=== PATIENT | male | born 1950 | race Caucasian/White ===

== ENCOUNTER 2016-04-11 06:38 | Outpatient (CLI) | payer MEDICAID ==
[~2016-04-11] VITALS: Ht 188 cm; Wt 72.7 kg
--- NOTE | ~2016-04-11 | HEMODYNAMI ---
PATIENT:JR BRIGHT MEDICAL RECORD: [id number] : 54 LOCATION:D.CAT ADMISSION DATE: 04/11/16 Generatedon:04/11/20169:36 Patient name: JR BRIGHT Patient #: [id number] : 1950 Date of study: 04/11/2016 Page: Of Hemodynamic Procedure Report Patient Data Patient Demographics Procedure consent was obtained First Name: JR Gender: Male Last Name: KAILA : 1950 Patient #: [id number] Age: 65 year(s) Race: Unknown SSN: [id number] Additional ID: [id number] Contact details [address]: [address] [place] [address] State: [place] City: [place] Zip code: [address] Past Medical History Allergies Allergen Reaction Date Comments Reported Other allergy 04/11/2016 codeine Admission Admission Data Admission Date: 04/11/2016 Admission Time: 6:38 Arrival Date: 04/11/2016 Arrival Time: 8:30 Admit Source: Other Insurance Payor: Private health insurance Height (in.): 74 BSA: 2.01 (m2) Height (cm.): 187.96 BMI: 21.31 (kg/m2) Weight (lbs.): 166 Weight (kg.): 75.3 Lab Results Lab Result Date: 04/11/2016 Lab Result Time: 0:00 Biochemistry Name Units Result Min Max BUN mg/dl 22 --(----)-* 7 18 Creatinine mg/dl 0.9 --(-*--)-- 0.6 1.3 CBC Name Units Result Min Max Hemoglobin g/dl 14.5 --(*---)-- 13.5 17.5 Procedure Procedure Types Cath Procedure Diagnostic Procedure [facility] w/Coronaries PCI Procedure Coronary Stent Initial Procedure Description Procedure Date Procedure Date: 04/11/2016 Procedure Start Time: 9:14 Procedure End Time: 9:31 Procedure Staff Name Function Ovi Anthony MD Performing Physician Miguel Thomas RT Scrub Kaela Meehan RN Nurse Jose Kemp RT Skidder Lever Operator Rohini Allen RT Monitor Procedure Data Cath Procedure Fluoroscopy Diagnostic fluoroscopy Total fluoroscopy Time: 6.9 time: 6.9 min min Diagnostic fluoroscopy Total fluoroscopy dose: 688 dose: 688 mGy mGy Contrast Material Contrast Material Type Amount (ml) Isovue 370 142 Entry Location Entry Primary Successful Side Size Upsize Upsize Entry Closure Barrientos ccessful Closure Location (Fr) 1 (Fr) 2 (Fr) Remarks Device Remarks Radial Right 6 Fr Mechanical artery Short Compression Estimated blood loss: 5 ml Diagnostic catheters Device Type Used For End Catheter Placement Terumo 5Fr Macho 110cm Multi-vessel catheter Angiography Cordis Infinity 5Fr AR 2 Right Coronary MOD catheter Angiography Procedure Complications No complications Procedure Medications Medication Administration Route Dosage Oxygen NC 2 l/min Heparin Flush Bag added to field 2 bags (1000units/500ml NS) Lidocaine 2% added to field 20 Radial Cocktail added to field 1 syringe (Verapomil 2mg/Nitro 400mcg/Heparin 1500units) Benadryl I.V. 50 mg Versed I.V. 1 mg Fentanyl I.V. 50 mcg Fentanyl I.V. 50 mcg Versed I.V. 1 mg Radial Cocktail I.A. 1 syringe (Verapomil 2mg/Nitro 400mcg/Heparin 1500units) Fentanyl I.V. 50 mcg Versed I.V. 1 mg Heparin Bolus I.V. 4000 units Hemodynamics Rest BSA: 2.01 (m2) HGB: 14.5 (g/dl) O2 Consumption: Estimated: 242.54 (ml/min) O2 Co nsumption indexed: Estimated:120.67 (ml/min/m) Heart Rate: 80 (bpm) Pressure Samples Time Site Value (mmHg) Purpose Heart Use Rate(bpm) 9:15 LV 80/-48,34 Snapshot 86 Snapshots Pre Cath Intra NCS Post Cath Vital Signs Time Heart Resp SPO2 NIBP (mmHg) Rhythm Pain Sedation Rate (ipm) (%) Status Level (bpm) 9:02:19 81 19 100 163/102(128) NSR 0 (11) 10(A) , No pain 9:06:37 70 17 99 166/100(123) NSR 0 (11) 10(A) , No pain 9:10:57 77 16 98 143/80(115) NSR 0 (11) 10(A) , No pain 9:15:13 89 16 98 130/56(89) NSR 0 (11) 9(A) , No pain 9:19:25 85 16 97 121/62(90) NSR 0 (11) 9(A) , No pain 9:23:37 88 16 96 120/62(95) NSR 0 (11) 9(A) , No pain 9:28:28 87 15 100 153/91(114) NSR 0 (11) 9(A) , No pain 9:30:29 91 16 100 160/95(127) NSR 0 (11) 9(A) , No pain Medications Time Medication Route Dose Verified Delivered Reason Notes Effectiveness by by 9:08:24 Oxygen NC 2 l/min Ovi Kaela Per physician Raj Meehan RN 9:08:46 Heparin Flush added 2 bags Ovi Dior used for Bag to Raj Anthony MD procedure (1000units/500ml field NS) 9:08:53 Lidocaine 2% added 20ml Ovi Dior used for to vial Raj Anthony MD procedure field 9:09:01 Radial Cocktail added 1 Ovi Ovi used for (Verapomil to syringe Raj Anthony MD procedure 2mg/Nitro field 400mcg/Heparin 1500units) 9:09:08 Benadryl I.V. 50 mg Ovi Kaela Per physician Raj Meehan RN 9:11:38 Fentanyl I.V. 50 mcg Ovi Kaela for sedation Raj Meehan RN 9:11:46 Versed I.V. 1 mg Ovi Kaela for sedation Raj Meehan RN 9:13:22 Fentanyl I.V. 50 mcg Ovi Kaela for sedation Raj Meehan RN 9:13:24 Versed I.V. 1 mg Ovi Kaela for sedation Raj Meehan RN 9:14:11 Radial Cocktail I.A. 1 Ovi Ovi for (Verapomil syringe Raj Anthony MD vasodilation 2mg/Nitro 400mcg/Heparin 1500units) 9:15:10 Versed I.V. 1 mg Ovi Kaela for sedation Raj Meehan RN 9:15:39 Fentanyl I.V. 50 mcg Ovi Sherwood for sedation Raj Meehan RN 9:19:38 Heparin Bolus I.V. 4000 Ovi Sherwood for units Raj Meehan RN anticoagulation Procedure Log Time Note 8:30:17 Jose Kemp RT(R) sent for patient. Start room use. 8:54:13 ACC Patient presents with Stable Angina CCS Anginal Class 2--Slight limitation of ordinary activity. 8:54:15 Diagnostic Cath status Elective 8:54:24 Time tracking: Regular hours 8:54:29 Plan of Care:Hemodynamics will remain stable., Cardiac rhythm will remain stable., Comfort level will be maintained., Respiratory function will remain adequate., Patient/ family verbilizes understanding of procedure., Procedure tolerated without complication., Recovers from procedure without complications.. 8:54:33 Patient received from Outpatients to CCL 1 Alert and oriented. Tansferred to table in Supine position. 8:54:34 Warm blankets applied, and samantha hugger turned on for patient comfort. 8:54:35 Correct patient and procedure confirmed by team. 8:54:36 Signed procedure consent form obtained from patient. 8:54:37 ECG and BP/O2 sat monitors applied to patient. 9:01:14 Vital chart was started 9:05:02 Baseline sample Acquired. 9:05:05 Rhythm: sinus rhythm 9:05:06 Full Disclosure recording started 9:05:29 H&P Date Dictated: 03/22/2016 Within 30 days and on chart., H&P Addendum completed by physician on day of procedure. (MUST COMPLETE FOR ALL OUTPATIENTS). 9:05:31 Pre-procedure instructions explained to patient. 9:05:31 Pre-op teaching completed and patient verbalized understanding. 9:05:32 Family in waiting room. 9:05:33 Patient NPO since Midnight. 9:05:43 Patient allergic to Other allergycodeine 9:05:46 Is the patient allergic to Iodine/contrast media? No. 9:05:47 Was the patient premedicated? No 9:05:48 Is patient on blood thinner?Yes 9:05:51 ACC The patient was administered the following blood thiners within the last 24 hours: ACCPlavix 9:05:53 Patient diabetic? No. 9:05:57 Previous problem with sedation/anesthesia? No ? 9:05:59 Snore? Yes 9:06:00 Sleep apnea? No 9:06:01 Deviated septum? No 9:06:02 Opens mouth fully? Yes 9:06:03 Sticks out tongue? Yes 9:06:05 Airway obstruction? No ? 9:06:07 Dentures? No ? 9:06:11 Pre procedure: right dorsailis pedis pulse 1+ Palpable, but thready & weak; easily obliterated 9:06:14 Modified David's test Radial < 7 seconds 9:06:16 Patient pain scale 0/10 ?. 9:06:26 IV patent on arrival in left forearm with 0.9% NaCl at [facility]. 9:08:24 Oxygen 2 l/min NC was given by Kaela Meehan RN; Per physician; 9:08:46 Heparin Flush Bag (1000units/500ml NS) 2 bags added to field was given by Ovi Anthony MD; used for procedure; 9:08:53 Lidocaine 2% 20ml vial added to field was given by Ovi Anthony MD; used for procedure; 9:09: Radial Cocktail (Verapomil 2mg/Nitro 400mcg/Heparin 1500units) 1 syringe added to field was given by Ovi Anthony MD; used for procedure; 9:09:08 Benadryl 50 mg I.V. was given by Kaela Meehan RN; Per physician; 9:11:25 Lab results completed and on chart. 9:11:29 Right Radial & Right Groin area was prepped with chlora-prep and draped in sterile fashion 9:11:30 Alarms reviewed by R. N. 9:11:30 Sharps counted by scrub and verified by R.N. 9:11:31 Physician arrived 9:11:31 --------ALL STOP TIME OUT------ 9:11:32 Final Timeout: patient, procedure, and site verified with staff and physician. All members of the team are in agreement. 9:11:34 Right Radial & Right Groin site verified by team. 9:11:38 Fentanyl 50 mcg I.V. was given by Kaela Meehan RN; for sedation; 9:11:42 Physical assessment completed. ASA score P 2 - A patient with mild systemic disease as per Ovi Anthony MD. 9:11:46 Versed 1 mg I.V. was given by Kaela Meehan RN; for sedation; 9:12:03 Sedation plan: IV Moderate Sedation Versed, Fentanyl 9:12:06 Use device set Radial Dx 9:12:08 Acist Syringe opened to sterile field. 9:12:08 Cardinal Cath Pack opened to sterile field. 9:12:08 Bag Decanter opened to sterile field. 9:12:09 Terumo 6Fr Slender Glidesheath opened to sterile field. 9:12:09 St Manolo 260cm J .035 wire opened to sterile field. 9:12:10 Acist Hand Control opened to sterile field. 9:12:10 Acist Manifold opened to sterile field. 9:12:12 Tegaderm 4 x 4 opened to sterile field. 9:12:19 Procedure started. 9:12:59 Zero performed for pressure channel P1 9:13:04 Zero performed for pressure channel P1 9:13:10 Zero performed for pressure channel P1 9:13:22 Fentanyl 50 mcg I.V. was given by Kaela Meehan RN; for sedation; 9:13:24 Versed 1 mg I.V. was given by Kaela Meehan RN; for sedation; 9:14:03 Local anesthetic to right radial artery with Lidocaine 2% by Ovi Anthony MD.INITIAL ACCESS ONLY 9:14:11 Radial Cocktail (Verapomil 2mg/Nitro 400mcg/Heparin 1500units) 1 syringe I.A. was given by Ovi Anthony MD; for vasodilation; 9:14:12 A 6 Fr Short sheath was inserted into the Right Radial artery 9:14:25 A Terumo 5Fr Macho 110cm catheter was advanced over the wire and used for Multi-vessel Angiography. 9:15:05 LV hemodynamics recorded. 9:15:07 LV gram done using MISTRY 9:15:10 Versed 1 mg I.V. was given by Kaela Meehan RN; for sedation; 9:15:10 Injector settings: Ml/sec: 5, Volume: 15, 9:15:16 EF : 60 % 9:15:35 Terumo TR Band Standard opened to sterile field. 9:15:39 Fentanyl 50 mcg I.V. was given by Kaela Meehan RN; for sedation; 9:16:26 Catheter removed. 9:16:40 Medtronic Launcher 6Fr EBU 3.5 guide catheter opened to sterile field. 9:17:05 6 Fr ebu 3.5 guide catheter was inserted over the wire 9:17:12 LCA angiography performed. 9:17:15 Injector settings: Ml/sec: 3, Volume: 6, 9:18:15 Moov cc. BasixCompak Inflation Kit opened to sterile field. 9:18:16 Concepcion Whisper J 300cm 0.014 guide wire opened to sterile field. 9:18:59 whisper wire advanced. 9:19:00 Wire advanced across lesion. 9:19:38 Heparin Bolus 4000 units I.V. was given by Kaela Meehan RN; for anticoagulation; 9:22:40 Inflation Number: 1 A Medtronic Resolute 3.0 X 30 stent was prepped and advanced across the Prox LAD. The stent was deployed at 13 JOELLE for 0:10 (min:sec). 9:23:39 Stent catheter was removed intact over wire. 9:25:19 Inflation Number: 2 A Medtronic Resolute 3.0 X 9 stent was prepped and advanced across the Prox LAD. The stent was deployed at 13 JOELLE for 0:10 (min:sec). 9:25:49 Stent catheter was removed intact over wire. 9:25:58 Wire removed. 9:25:59 Guide catheter removed. 9:26:05 A Cordis Infinity 5Fr AR 2 MOD catheter was advanced over the wire and used for Right Coronary Angiography. 9:27:48 RCA angiography performed. 9:27:51 Injector settings: Ml/sec: 3, Volume: 6, 9:28:56 Catheter removed. 9:29:22 Sheath removed intact; hemostasis achieved with Mechanical Compression to the Right Radial artery. 9:29:26 Procedure ended.(Physican Out) 9::48 Fluoroscopy time 06.90 minutes. 9:29:55 Flurop Dose total: 688 9:29:55 Fluoroscopy dose: 688 mGy 9:30:00 Contrast amount:Isovue 370 142ml. 9:30:02 Sharps counted by scrub and verified by R.N. 9:30:05 Insertion/operative site no bleeding no hematoma. 9:30:12 Post-op/insertion site Right Radial artery dressed using a 4 x 4 and Tegaderm. 9:30:25 Post right radial artery:stable 9:30:27 Post Procedure Pulses reassessed and unchanged 9:30:29 Post procedure rhythm: unchanged. 9:30:32 Estimated blood loss: 5 ml 9:30:33 Post procedure instruction explained to patient.Patient verbalizes understanding. 9:30:34 Patient needs reinforcement of post procedure teaching. 9:31:01 Procedure type changed to Cath procedure, Diagnostic procedure, LHC, LHC w/Coronaries, PCI procedure, Coronary Stent Initial 9:31:02 Procedure and supply charges have been captured, reviewed, submitted and are correct. 9:31:06 Procedure Complication : No complications 9:31:08 Vital chart was stopped 9:31:09 See physician's report for complete and final results. 9:31:11 Report given to Post Procedure Room. 9:31:16 Patient transfered to Post Procedure Room with Stretcher. 9:31:17 Procedure ended. 9:31:17 Full Disclosure recording stopped 9:31:27 ACC-PCI Only Patient was given prescriptions, or instructed by Ovi Anthony MD to start/continue the following medications upon discharge: Plavix 9:31:28 End room use (Document Last) 9:34:28 Admit Source: Other 9:34:34 Arrival Date: 04/11/2016 8:30:00 AM 9:34:41 Insurance Payor : Private health insurance 9:34:46 Patient Height : 187.96 cm 9:34:51 Patient Weight : 75.3 kg 9:35:17 Lab Result : Hemoglobin 14.5 g/dl 9:35:17 Lab Result : Creatinine 0.9 mg/dl 9:35:17 Lab Result : BUN 22 mg/dl Intervention Summary Intervention Notes Time ActionType Lesion and Equipment Action# Pressure Duration Attributes Used 9:22:40 Place stent Prox LAD Medtronic 1 13 00:10 Resolute 3.0 X 30 stent 9:25:19 Place stent Prox LAD Medtronic 2 13 00:10 Resolute 3.0 X 9 stent Device Usage Item Name Manufacture Quantity Catalog Hospital Part Current Minimal Lot# / Number Charge Number Stock Stock Serial# Code Acist Acist 1 89367 070113 126023 255829 20 AccuSilicon [facility] Cardinal Cardinal 1 [id number] 763420 71455 435208 5 Cath Pack Health Bag Microtek 1 2002S 474996 21759 098345 5 [employer] Terumo 6Fr Terumo 1 [id number] 803374 807865 778854 [address] St Manolo 1 590659 323490 077951 999134 30 260cm J .035 wire Acist Hand Acist 1 89216 733618 075127 245414 5 Control [employer] Inc Acist Acist 1 44768 755713 338011 982444 5 Funtactix Medical [employer] Inc Tegaderm 4 3M 1 [id number] 275096 050893 577826 5 x 4 Terumo 5Fr Terumo 1 40-7543 923825 805840 470048 5 Macho 110cm catheter Terumo TR Terumo 1 [id number] 430784 422780 612887 40 Band Standard Medtronic Medtronic 1 [id number] 943108 03733 598833 3 Launcher 6Fr EBU 3.[address] [facility] 1 [id number] 632222 794238 768398 15 BasixCompak Medical Inflation Kit Concepcion Concepcion 1 [id number] 441721 234290 751764 5 Whisper J Vascular 300cm 0.014 guide wire Medtronic Medtronic 1 [id number] 457866 159285 5 [id number] Resolute 3.0 X 30 stent Medtronic Medtronic 1 [id number] 545711 903497 9 [id number] Resolute 3.0 X 9 stent Cordis Cardinal 1 [id number] 544839 769187 040559 20 [employer] 5Fr AR 2 MOD catheter Signature Audit [place] Stage Time Signature Unsigned Intra-Procedure 04/11/2016 Rohini Allen 9:36:16 AM RT(R) Signatures Monitor : Rohini Allen RT Signature : Date : Time : [facility] [address] [place] [address]
[2016-04-11] MEDS ORDERED: PRINIVIL10 MG PO (07:46)
[2016-04-11] MEDS ORDERED: PLAVIX75 MG PO (07:47)
[2016-04-11 07:51] LABS: CALC OSMOLALITY 281 mosm/kg (275-300); CALCIUM 9.1 mg/dL (8.5-10.1); CARBON DIOXIDE 27.7 mmol/L (21.0-32.0); CHLORIDE - SERUM 106 mmol/L (98-107); CREATININE - SERUM 0.9 mg/dL (0.6-1.3); GLUCOSE 97 mg/dL (74-106); POTASSIUM - SERUM 4.4 mmol/L (3.5-5.1); SODIUM 140 mmol/L (136-145); UREA NITROGEN 22 mg/dL (7-18); eGFR NON AFRICAN AMERICAN > 90 mL/min (90-120)
[2016-04-11 07:52] LABS: HEMATOCRIT 40.6 % (42.0-54.0); HEMOGLOBIN 14.5 g/dL (13.5-17.5); LYMPHOCYTES 33.6 % (15-50); MCH 32.7 pg (26.0-34.0); MCHC 35.7 g/dL (31.0-37.0); MCV 91.4 fL (80.0-100.0); MEAN PLATELET VOLUME 9.3 fL (7.4-10.4); NEUTROPHILS 56.2 % (40-80); PLATELET COUNT 211 10x3/uL (130-400); RBC 4.44 10x6/uL (4.20-6.10); WBC 5.4 10x3/uL (4.8-10.8)
[2016-04-11 08:03] VITALS: BP 147/90; Ht 188 cm; Wt 72.7 kg
[2016-04-11] MEDS ORDERED: BAYER CHEWABLE81 MG PO (09:51)
--- NOTE | 2016-04-11 09:58 | NUR ---
1000-RIGHT WRIST TR BAND CDI, NO BLEEDING OR HEMATOMA NOTED, CONT TO MONITOR SITE
--- NOTE | 2016-04-11 11:24 | NUR ---
1030-PT RESTING COMFORTABLY, NO DISTRESS, RIGHT WRIST TR BAND CDI, NO BLEEDING OR HEMATOMA NOTED, CONT TO MONITOR SITE, NSR, VSS, NO FAMILY PRESENT PROVIDE COMFORT AND SAFETY, CALL LIGHT IN REACH, ENCOURAGED TO CALL FOR NEEDS.
--- NOTE | 2016-04-11 11:25 | NUR ---
1100-NO CHANGES IN ASSESSMENT, CONT POC
--- NOTE | 2016-04-11 11:27 | NUR ---
1130-PT ALERT AND ORIENTED, DR. QUINONES AT BEDSIDE, PT TO RETURN NEXT SATURDAY FOR STENT TO [facility], STAY OVERNIGHT AND HAVE STENT TO [facility]C ON SATURDAY. OFFICE NOTIFIED AND WILL SET UP. RIGHT WRIST TR BAND REMAINS CDI, NO BLEEDING OR HEMATOMA NOTED, CONT TO MONITOR SITE, NO FAMILY PRESENT, CONT POC, ENCOURAGED TO CALL FOR NEEDS. PO FLUIDS AT BEDSIDE.
--- NOTE | 2016-04-11 12:05 | NUR ---
1200-NO CHANGES IN ASSESSMENT, CONT POC, INFORMATION RECEIEVED FROM DR. QUINONES'S OFFICE FOR FOLLOW UP STENT PLACEMENT ON SATURDAY/SATURDAY.
--- NOTE | 2016-04-11 12:25 | NUR ---
1230-PT ALERT AND ORIENTED, NO DISTRESS, RIGHT WRIST CDI, SLOWLY RELEASE 1/2 OF AIR FROM BAND, NO BLEEDING OR HEMATOMA NOTED, CONT TO MONITOR SITE, NO FAMILY PRESENT AT THIS TIME, PT VERBALIZES NO NEEDS, CONT POC.
--- NOTE | 2016-04-11 13:35 | NUR ---
1300-NO CHANGES IN ASSESSMENT, CONT POC 1315-RIGHT WRIST TR BAND CDI, REMAINDER OF AIR RELEASED, NO BLEEDING OR HEMATOMA NOTED, CONT TO MONITOR SITE, NSR, VSS, IV DC, CATH INTACT, PT UP TO GET DRESSED, ENCOURAGED TO CALL FOR NEEDS. FAMILY AT BEDSIDE TO ASSIST. 1330-DRESSING TO RIGHT WRIST CDI, NO BLEEDING OR HEMATOMA NOTED, PT AMBULATORY TO BATHROOM, ABLE TO VOID WITHOUT DIFFICULTY, DC INSTRUCTIONS REVIEWED WITH PT/FAMILY, VERBALIZES UNDERSTANDING, EDUCATION PROVIDED ON SAFETY FALL RISKS, PREARRIVAL INSTRUCTIONS GIVEN FOR RETURN VISIT, PT READY FOR DC, CALL FOR WC 1335-PT TO POV VIA WC
--- NOTE | 2016-04-20 16:40 | OP ---
PATIENT NAME: JR BRIGHT MEDICAL RECORD: [id number] :54 LOCATION:D.CAT ADMISSION DATE: SURGEON: YUNIEL QUINONES MD DATE OF OPERATION: 04/11/2016 PROCEDURES: 1. PTCA, stent LAD. 2. Left heart catheterization. 3. Selective coronary angiography. 4. Left ventriculogram. INDICATION: Angina and coronary artery disease. PROCEDURE IN DETAIL: After informed consent was obtained and after a detailed explanation of risks, benefits, as well as alternative therapies, the patient elected to proceed with angiogram and angioplasty. The right radial area was prepped and draped in normal sterile fashion. The right radial artery was cannulated via modified Seldinger technique with placement of 6-Austrian sheath. All catheters exchanged through this sheath. FINDINGS: Left ventriculogram was performed in standard 30-degree MISTRY view, reveals good cardiac wall motion throughout all segments. Overall ejection fraction estimated at 55% to 60%. SELECTIVE CORONARY ANGIOGRAPHY: 1. Left main showed no significant angiographic disease. 2. Left anterior descending has 80% stenosis proximally. 3. The left circumflex has 50% to 70% stenosis in the mid vessel, but this does not appear to be critical. 4. The right coronary has 2 areas of 70% to 80% stenosis in the mid vessel. PTCA STENT OF THE LAD: The stent used was a 3.0 x 30 and 3.0 x 9 both Medtronic Resolute stents. Result was 0% residual stenosis. OVERALL IMPRESSION: Successful percutaneous transluminal coronary angioplasty stent of the left anterior descending going from 80% initial stenosis to 0% residual. PLAN: PTCA stent of the RCA in the near future. TRANSINT:[id number] Voice Confirmation ID: [id number] DOCUMENT ID: [id number] YUNIEL QUINONES MD at 1640 CC: [id number] DICTATION DATE: 04/16/16 1142 DENTAL LABORATORY MANAGER: 04/16/16 1150 [facility] CLI 04/11/16 [place] [id number]
== END 2016-04-11 13:38 | disposition home or self-care (01) ==
LOC: D.CATH 06:38
PROVIDERS: Internal Medicine Interventional Cardiology
DX: I20.9 Angina pectoris, unspecified (principal); I10 Essential (primary) hypertension; R94.39 Abnormal result of other cardiovascular function study; Z87.891 Personal history of nicotine dependence

== ENCOUNTER 2016-04-17 07:37 | Outpatient (CLI) | payer OTHER ==
[~2016-04-17] VITALS: Ht 188 cm; Wt 73.2 kg
--- NOTE | ~2016-04-17 | HEMODYNAMI ---
PATIENT:JR BRIGHT MEDICAL RECORD: [id number] : 54 LOC[id number] [id number] ADMISSION DATE: 04/17/16 Generatedon:04/18/201610:58 Patient name: JR BRIGHT Patient #: [id number] : 1950 Date of study: 04/18/2016 Page: Of Hemodynamic Procedure Report Patient Data Patient Demographics Procedure consent was obtained First Name: JR Gender: Male Last Name: KAILA : 1950 [facility] Initial: ESTRELLITA Age: 65 year(s) Patient #: [id number] Race: Unknown SSN: [id number] Additional ID: [id number] Contact details Address: [address] [place] [address] State: [place] City: [place] Zip code: [address] Past Medical History Allergies Allergen Reaction Date Comments Reported Other allergy 04/11/2016 codeine Other allergy 04/17/2016 codeine Codeine 04/18/2016 Admission Admission Data Admission Date: 04/17/2016 Admission Time: 7:37 Arrival Date: 04/17/2016 Arrival Time: 9:30 Admit Source: Other Insurance Payor: Private Room #: [id number] health insurance Height (in.): 74 BSA: 1.98 (m2) Height (cm.): 187.96 BMI: 20.54 (kg/m2) Weight (lbs.): 160 Weight (kg.): 72.57 Lab Results Lab Result Date: 04/18/2016 Lab Result Time: 0:00 Biochemistry Name Units Result Min Max BUN mg/dl 17 --(---*)-- 7 18 Creatinine mg/dl 0.9 --(-*--)-- 0.6 1.3 CBC Name Units Result Min Max Hemoglobin g/dl 14.7 --(-*--)-- 13.5 17.5 Procedure Procedure Types Cath Procedure Diagnostic Procedure FFR/IVUS Intra-Coronary IVUS Initial PCI Procedure Coronary Stent Initial Procedure Description Procedure Date Procedure Date: 04/18/2016 Procedure Start Time: 10:47 Procedure End Time: 10:55 Procedure Staff Name Function Ovi Anthony MD Performing Physician Rohini Allen RT Scrub Kaela Meehan RN Nurse Miguel Thomas RT Exterior Designer Echo Redmond RT Monitor Procedure Data Cath Procedure Fluoroscopy Diagnostic fluoroscopy Total fluoroscopy Time: 2.8 time: 2.8 min min Diagnostic fluoroscopy Total fluoroscopy dose: 299 dose: 299 mGy mGy Contrast Material Contrast Material Type Amount (ml) Isovue 300 44 Entry Location Entry Primary Successful Side Size Upsize Upsize Entry Closure Succes sful Closure Location (Fr) 1 (Fr) 2 (Fr) Remarks Device Remarks Femoral Left 6 Fr Vascade artery Short Closure System Estimated blood loss: 10 ml Procedure Complications No complications Procedure Medications Medication Administration Route Dosage Oxygen NC 2 l/min Heparin Flush Bag added to field 2 bags (1000units/500ml NS) Lidocaine 2% added to field 20 Versed I.V. 1 mg Fentanyl I.V. 50 mcg Versed I.V. 1 mg Fentanyl I.V. 50 mcg Heparin Bolus I.V. 4000 units Versed I.V. 1 mg Fentanyl I.V. 50 mcg Versed I.V. 1 mg Fentanyl I.V. 50 mcg Hemodynamics Rest BSA: 1.98 (m2) O2 Consumption: Estimated: 237.24 (ml/min) O2 Consumption indexed : Estimated:119.82 (ml/min/m) Heart Rate: 78 (bpm) Snapshots Pre Cath Intra NCS Post Cath Vital Signs Time Heart Resp SPO2 NIBP (mmHg) Rhythm Pain Sedation Rate (ipm) (%) Status Level (bpm) 10:34:15 86 19 100 162/96(129) NSR 0 (11) 10(A) , No pain 10:38:33 87 16 100 146/91(129) NSR 0 (11) 10(A) , No pain 10:42:47 79 16 99 132/82(103) NSR 0 (11) 10(A) , No pain 10:46:59 75 16 100 129/78(93) NSR 0 (11) 9(A) , No pain 10:51:11 79 16 98 125/72(106) NSR 0 (11) 9(A) , No pain 10:55:23 80 19 97 118/69(96) NSR 0 (11) 9(A) , No pain Medications Time Medication Route Dose Verified Delivered Reason Notes Effectiveness by by 10:33:18 Oxygen NC 2 Ovi Kaela Per physician l/min Raj Meehan RN 10:33:25 Heparin Flush added 2 Ovi Dior used for Bag to bags Raj Anthony MD procedure (1000units/500ml field NS) 10:33:31 Lidocaine 2% added 20ml Ovi Ovi used for to vial Raj Anthony MD procedure field 10:41:20 Versed I.V. 1 mg Ovi Kaela for sedation Raj Meehan RN 10:41:26 Fentanyl I.V. 50 Ovi Kaela for sedation mcg Raj Meehan RN 10:43:51 Versed I.V. 1 mg Ovi Kaela for sedation Raj Meehan RN 10:43:53 Fentanyl I.V. 50 Ovi Kaela for sedation mcg Raj Meehan RN 10:45:02 Versed I.V. 1 mg Ovi Kaela for sedation Raj Meehan RN 10:45:09 Fentanyl I.V. 50 Ovi Kaela for sedation mcg Raj Meehan RN 10:47:44 Heparin Bolus I.V. 4000 Ovi Kaela for dose units aRj Meehan RN anticoagulation verified with dr anthony 10:49:28 Versed I.V. 1 mg Ovi Kaela for sedation Raj Meehan RN 10:49:31 Fentanyl I.V. 50 Ovi Kaela for sedation mcg Raj Meehan RN Procedure Log Time Note 10:00:15 Miguel Thomas RT(R) sent for patient. Start room use. 10:22:10 Admit Source: Other 10:22:12 Diagnostic Cath status Elective 10:22:34 Time tracking: Regular hours 10:22:39 Plan of Care:Hemodynamics will remain stable., Cardiac rhythm will remain stable., Comfort level will be maintained., Respiratory function will remain adequate., Patient/ family verbilizes understanding of procedure., Procedure tolerated without complication., Recovers from procedure without complications.. 10:22:45 Patient received from Med II to CCL 1 Alert and oriented. Tansferred to table in Supine position. 10:22:49 Warm blankets applied, and samantha hugger turned on for patient comfort. 10:22:49 Correct patient and procedure confirmed by team. 10:22:52 Signed procedure consent form obtained from patient. 10:23:12 H&P Date Dictated: 04/17/2016 Within 30 days and on chart., H&P Addendum completed by physician on day of procedure. (MUST COMPLETE FOR ALL OUTPATIENTS). 10:23:15 Pre-procedure instructions explained to patient. 10:23:17 Family in waiting room. 10:23:19 Patient NPO since Midnight. 10:30:33 Patient allergic to Codeine 10:30:36 Is the patient allergic to Iodine/contrast media? No. 10:30:39 Is patient on blood thinner?Yes 10:30:41 ACC The patient was administered the following blood thiners within the last 24 hours: ACCPlavix 10:31:20 Patient diabetic? No. 10:31:23 ----Pre-sedation anethsthesia assessment.---- 10:31:25 Previous problem with sedation/anesthesia? No ? 10:31:27 Snore? Yes 10:31:28 Sleep apnea? No 10:31:29 Deviated septum? No 10:31:30 Opens mouth fully? Yes 10:31:32 Sticks out tongue? Yes 10:31:35 Airway obstruction? No ? 10:31:37 Dentures? No ? 10:31:42 Pre procedure: left dorsailis pedis pulse 2+ Normal; easily identifiable; not easily obliterated 10:31:44 Modified David's test Ulnar < 7 seconds 10:31:47 Patient pain scale 0/10 ?. 10:33:09 Vital chart was started 10:33:18 Oxygen 2 l/min NC was given by Kaela Meehan RN; Per physician; 10:33:25 Heparin Flush Bag (1000units/500ml NS) 2 bags added to field was given by Ovi Anthony MD; used for procedure; 10:33:31 Lidocaine 2% 20ml vial added to field was given by Ovi Anthony MD; used for procedure; 10:33:34 IV patent on arrival in left forearm with 0.9% NaCl at 10ml/hr. 10:36:10 Lab Result : BUN 17 mg/dl 10:36:10 Lab Result : Creatinine 0.9 mg/dl 10:36:10 Lab Result : Hemoglobin 14.7 g/dl 10:38:09 Lab results completed and on chart. 10:38:11 Right Radial & Right Groin area was prepped with chlora-prep and draped in sterile fashion 10:38:12 Alarms reviewed by R. N. 10:38:12 Sharps counted by scrub and verified by R.N. 10:38:15 Physician paged 10:40:00 Physician arrived 10:40:16 --------ALL STOP TIME OUT------ 10:40:17 Final Timeout: patient, procedure, and site verified with staff and physician. All members of the team are in agreement. 10:41:20 Versed 1 mg I.V. was given by Kaela Meehan RN; for sedation; 10:41:26 Fentanyl 50 mcg I.V. was given by Kaela Meehan RN; for sedation; 10:42:56 Left groin site verified by team. 10:43:09 Physical assessment completed. ASA score P 2 - A patient with mild systemic disease as per Ovi Anthony MD. 10:43:13 Sedation plan: IV Moderate Sedation Versed, Fentanyl 10:43:51 Versed 1 mg I.V. was given by Kaela Meehan RN; for sedation; 10:43:51 Use device set Femoral PCI 10:43:53 Fentanyl 50 mcg I.V. was given by Kaela Meehan RN; for sedation; 10:43:53 Acist Syringe opened to sterile field. 10:43:53 Acist Hand Control opened to sterile field. 10:43:53 Bag Decanter opened to sterile field. 10:43:54 Cardinal Cath Pack opened to sterile field. 10:43:54 Terumo 6Fr Questa Sheath opened to sterile field. 10:43:55 St Manolo 260cm J .035 wire opened to sterile field. 10:43:55 Merit BasixCompak Inflation Kit opened to sterile field. 10:43:56 Acist Manifold opened to sterile field. 10:43:57 Tegaderm 4 x 4 opened to sterile field. 10:44:25 Medtronic Launcher 5Fr EBU 3.5 guide catheter opened to sterile field. 10:44:26 [place] N[place]qually Eagleye IVUS Catheter opened to sterile field. 10:44:33 Zero performed for pressure channel P1 10:45:02 Versed 1 mg I.V. was given by Kaela Meehan RN; for sedation; 10:45:05 ECG and BP/O2 sat monitors applied to patient. 10:45:06 Baseline sample Acquired. 10:45:09 Fentanyl 50 mcg I.V. was given by Kaela Meehan RN; for sedation; 10:45:09 Rhythm: sinus rhythm 10:45:10 Full Disclosure recording started 10:47:04 Procedure started. 10:47:34 Local anesthetic to left femerol artery with Lidocaine 2% by Ovi Anthony MD.INITIAL ACCESS ONLY 10:47:44 Heparin Bolus 4000 units I.V. was given by Kaela Meehan RN; for anticoagulation; dose verified with dr anthony 10:47:46 A 6 Fr Short sheath was inserted into the Left Femoral artery 10:48:04 6 Fr EBU 3.5 guide catheter was inserted over the wire 10:48:12 whisper\ wire advanced. 10:48:18 IVUS catheter advanced over wire. 10:49:28 Versed 1 mg I.V. was given by Kaela Meehan RN; for sedation; 10:49:31 Fentanyl 50 mcg I.V. was given by Kaela Meehan RN; for sedation; 10:51:38 IVUS catheter removed over wire. 10:52:08 Inflation Number: 1 A Medtronic Resolute 2.5 X 26 stent was prepped and advanced across the Mid CX. The stent was deployed at 13 JOELLE for 0:10 (min:sec). 10:53:15 Vascade 6/7 Fr Closure Device opened to sterile field. 10:53:24 Stent catheter was removed intact over wire. 10:53:25 Wire removed. 10:53:26 Guide catheter removed. 10:53:36 Sheath removed intact; hemostasis achieved with Vascade Closure System to the Left Femoral artery. 10:53:40 Procedure ended.(Physican Out) 10:53:57 Fluoroscopy time 02.80 minutes. 10:54:01 Fluoroscopy dose: 299 mGy 10:54:01 Flurop Dose total: 299 10:54:07 Contrast amount:Isovue 300 44ml. 10:54:10 Sharps counted by scrub and verified by R.N. 10:54:13 Insertion/operative site no bleeding no hematoma. 10:54:16 Post-op/insertion site Left Femoral artery dressed using a 4 x 4 and Tegaderm. 10:54:19 Post Procedure Pulses reassessed and unchanged 10:54:25 Post-procedure physical assessment completed. ASA score P 2 - A patient with mild systemic disease as per Ovi Anthony MD. 10:54:28 Post procedure rhythm: unchanged. 10:54:32 Estimated blood loss: 10 ml 10:54:35 Post procedure instruction explained to patient.Patient verbalizes understanding. 10:54:54 Procedure type changed to Cath procedure, Diagnostic procedure, FFR/IVUS, Intra-Coronary IVUS Initial, PCI procedure, Coronary Stent Initial 10:54:55 Procedure and supply charges have been captured, reviewed, submitted and are correct. 10:55:20 Procedure Complication : No complications 10:55:26 Report given to [facility]. 10:55:30 Patient transfered to [facility] with Bed. 10:55:33 Procedure ended. 10:55:33 Full Disclosure recording stopped 10:55:39 End room use (Document Last) 10:58:12 Vital chart was stopped Intervention Summary Intervention Notes Time ActionType Lesion and Equipment Action# Pressure Duration Attributes Used 10:52:08 Place stent Mid CX Medtronic 1 13 00:10 Resolute 2.5 X 26 stent Device Usage Item Name Manufacture Quantity Catalog Hospital Part Current Minima l Lot# / Number Charge Number Stock Stock Serial# Code Acist Acist 1 [id number] [id number] [id number] 20 Syringe Medical Systems Inc Acist Hand Acist 1 46662 225360 [id number] [id number] 5 Control Medical Systems Inc Bag Microtek 1 2002S 180175 73361 072382 5 Decanter Medical Inc. Cardinal Cardinal 1 [id number] 234969 71729 [address] Payments Terumo 6Fr Terumo 1 [id number] [id number] 268358 323472 [address] St Manolo 1 [id number] 837060 416460 [id number] 30 260cm J .035 wire Merit Merit 1 [id number] 983808 545463 544216 15 BasixMavenHutk Medical Inflation Kit Acist Acist 1 12863 036725 876667 328480 5 Manifold Medical Systems Inc Tegaderm 4 3M 1 [id number] 512396 146792 321252 5 x 4 Medtronic Medtronic 1 [id number] 187226 421912 259915 1 Launcher 5Fr EBU 3.5 guide catheter [place] 1 [id number] 928408 551790 189717 8 Nisqually Eagleye IVUS Catheter Medtronic Medtronic 2 [id number] 567313 [id number] 3 [id number] Resolute 2.5 X 26 stent Vascade 09/05 Cardiva 1 [id number] 533825 459417 639456 5 Fr Closure Medical, Device Inc. Signature Audit Gatzke Stage Time Signature Unsigned Intra-Procedure 04/18/2016 Echo Redmnod 10:58:09 AM RT(R) Signatures Monitor : Echo Redmond Signature : RT Date : Time : [id number] [place] [address]
--- NOTE | ~2016-04-17 | HEMODYNAMI ---
PATIENT:JR BRIGHT MEDICAL RECORD: [id number] : 54 LOCATION:DZION ADMISSION DATE: 04/17/16 Generatedon:04/17/201611:25 Patient name: JR BRIGHT Patient #: [id number] : 1950 Date of study: 04/17/2016 Page: Of Hemodynamic Procedure Report Patient Data Patient Demographics Procedure consent was obtained First Name: JR Gender: Male Last Name: KAILA : 1950 [facility] Initial: ESTRELLITA Age: 65 year(s) Patient #: [id number] Race: Unknown SSN: [id number] Additional ID: [id number] Contact details [address]: [address] [place] [address] State: [place] City: [place] Zip code: [address] Past Medical History Allergies Allergen Reaction Date Comments Reported Other allergy 04/11/2016 codeine Other allergy 04/17/2016 codeine Admission Admission Data Admission Date: 04/17/2016 Admission Time: 7:37 Arrival Date: 04/17/2016 Arrival Time: 9:30 Admit Source: Other Insurance Payor: Private health insurance Height (in.): 74 BSA: 1.98 (m2) Height (cm.): 187.96 BMI: 20.54 (kg/m2) Weight (lbs.): 160 Weight (kg.): 72.57 Lab Results Lab Result Date: 04/17/2016 Lab Result Time: 0:00 Biochemistry Name Units Result Min Max BUN mg/dl 17 --(---*)-- 7 18 Creatinine mg/dl 0.9 --(-*--)-- 0.6 1.3 CBC Name Units Result Min Max Hemoglobin g/dl 14.7 --(-*--)-- 13.5 17.5 Procedure Procedure Types Cath Procedure PCI Procedure Coronary Stent Initial Procedure Description Procedure Date Procedure Date: 04/17/2016 Procedure Start Time: 11:05 Procedure End Time: 11:18 Procedure Staff Name Function Ovi Anthony MD Performing Physician Miguel Thomas RT Scrub Kaela Meehan RN Nurse Rohini Allen RT Monitor Procedure Data Cath Procedure Fluoroscopy Diagnostic fluoroscopy Total fluoroscopy Time: 2.8 time: 2.8 min min Diagnostic fluoroscopy Total fluoroscopy dose: 174 dose: 174 mGy mGy Contrast Material Contrast Material Type Amount (ml) Isovue 370 107 Entry Location Entry Primary Successful Side Size Upsize Upsize Entry Closure Succes sful Closure Location (Fr) 1 (Fr) 2 (Fr) Remarks Device Remarks Femoral Right 7 Fr Exoseal artery Short Estimated blood loss: 5 ml Procedure Complications No complications Procedure Medications Medication Administration Route Dosage Oxygen NC 2 l/min Heparin Flush Bag added to field 2 bags (1000units/500ml NS) Lidocaine 2% added to field 20 Benadryl I.V. 50 mg 0.9% NaCl I.V. 100 ml/hr Versed I.V. 1 mg Fentanyl I.V. 50 mcg Versed I.V. 1 mg Fentanyl I.V. 50 mcg Versed I.V. 1 mg Fentanyl I.V. 50 mcg Heparin Bolus I.V. 4000 units Nitroglycerin IC/IA I.C. 300 mcg Nitroglycerin IC/IA I.C. 300 mcg Versed I.V. 1 mg Fentanyl I.V. 50 mcg Hemodynamics Rest BSA: 1.98 (m2) HGB: 14.7 (g/dl) O2 Consumption: Estimated: 242.88 (ml/min) O2 Co nsumption indexed: Estimated:122.67 (ml/min/m) Heart Rate: 85 (bpm) Snapshots Pre Cath Intra NCS Post Cath Vital Signs Time Heart Resp SPO2 NIBP (mmHg) Rhythm Pain Sedation Rate (ipm) (%) Status Level (bpm) 10:54:03 81 16 100 159/89(141) NSR 0 (11) 10(A) , No pain 10:58:17 106 18 100 174/103(150) NSR 0 (11) 10(A) , No pain 11:02:39 76 16 100 161/89(134) NSR 0 (11) 10(A) , No pain 11:06:59 73 16 99 143/83(109) NSR 0 (11) 10(A) , No pain 11:11:13 83 15 100 131/77(105) NSR 0 (11) 9(A) , No pain 11:15:21 97 20 100 134/82(98) NSR 0 (11) 9(A) , No pain 11:19:56 91 16 100 130/78(98) NSR 0 (11) 9(A) , No pain Medications Time Medication Route Dose Verified Delivered Reason Notes Effectiveness by by 10:58:16 Oxygen NC 2 Ovi Kaela Per physician l/min Raj Meehan RN 10:58:24 Heparin Flush added 2 Ovi Ovi used for Bag to bags Raj Anthony MD procedure (1000units/500ml field NS) 10:58:30 Lidocaine 2% added 20ml Ovi Ovi used for to vial Raj Anthony MD procedure field 10:58:37 Benadryl I.V. 50 mg Ovi Kaela Per physician Raj Meehan RN 11:02:23 0.9% NaCl I.V. 100 Ovi Kaela Per physician ml/hr Raj Meehan RN 11:03:29 Versed I.V. 1 mg Ovi Kaela for sedation Raj Meehan RN 11:03:35 Fentanyl I.V. 50 Ovi Kaela for sedation mcg Raj Meehan RN 11:05:21 Versed I.V. 1 mg Ovi Kaela for sedation Raj Meehan RN 11:05:26 Fentanyl I.V. 50 Ovi Kaela for sedation mcg Raj Meehan RN 11:07:51 Versed I.V. 1 mg Ovi Kaela for sedation Raj Meehan RN 11:07:53 Fentanyl I.V. 50 Ovi Kaela for sedation mcg Raj Meehan RN 11:09:01 Heparin Bolus I.V. 4000 Ovi Kaela for dose units Raj Meehna RN anticoagulation verified wtih dr anthony 11:09:44 Versed I.V. 1 mg Ovi Kaela for sedation Raj Meehan RN 11:09:52 Fentanyl I.V. 50 Ovi Kaela for sedation mcg Raj Meehan RN 11:13:02 Nitroglycerin I.C. 300 Ovi Ovi for IC/IA mcg Raj Anthony MD vasodilation 11:14:13 Nitroglycerin I.C. 300 Ovi Dior for IC/IA mcg Raj Anthony MD vasodilation Procedure Log Time Note 10:30:03 Kaela Meehan RN sent for patient. Start room use. 10:47:59 ACC Patient presents with Stable Angina CCS Anginal Class 2--Slight limitation of ordinary activity. 10:48:01 Diagnostic Cath status Elective 10:48:09 Time tracking: Regular hours 10:48:13 Plan of Care:Hemodynamics will remain stable., Cardiac rhythm will remain stable., Comfort level will be maintained., Respiratory function will remain adequate., Patient/ family verbilizes understanding of procedure., Procedure tolerated without complication., Recovers from procedure without complications.. 10:48:17 Patient received from Outpatients to CCL 1 Alert and oriented. Tansferred to table in Supine position. 10:48:17 Warm blankets applied, and samantha hugger turned on for patient comfort. 10:48:18 Correct patient and procedure confirmed by team. 10:48:19 Signed procedure consent form obtained from patient. 10:48:20 ECG and BP/O2 sat monitors applied to patient. 10:52:53 Vital chart was started 10:54:21 Baseline sample Acquired. 10:54:26 Rhythm: sinus rhythm 10:54:27 Full Disclosure recording started 10:55:57 H&P Date Dictated: 04/17/2016 H&P Addendum completed by physician on day of procedure. (MUST COMPLETE FOR ALL OUTPATIENTS), New H&P dictated by physician.. 10:55:58 Pre-procedure instructions explained to patient. 10:55:59 Pre-op teaching completed and patient verbalized understanding. 10:56:00 Family in waiting room. 10:56:02 Patient NPO since Midnight. 10:56:13 Patient allergic to Other allergycodeine 10:56:16 Is the patient allergic to Iodine/contrast media? No. 10:56:18 Was the patient premedicated? No 10:56:23 Is patient on blood thinner?Yes 10:56:26 ACC The patient was administered the following blood thiners within the last 24 hours: ACCPlavix 10:58:16 Oxygen 2 l/min NC was given by Kaela Meehan RN; Per physician; 10:58:24 Heparin Flush Bag (1000units/500ml NS) 2 bags added to field was given by Ovi Anthony MD; used for procedure; 10:58:30 Lidocaine 2% 20ml vial added to field was given by Ovi Anthony MD; used for procedure; 10:58:37 Benadryl 50 mg I.V. was given by Kaela Meehan RN; Per physician; 10:58:50 Patient diabetic? No. 10:58:52 Previous problem with sedation/anesthesia? No ? 10:58:56 Snore? No 10:58:58 Sleep apnea? No 10:58:59 Deviated septum? No 10:59:00 Opens mouth fully? Yes 10:59:01 Sticks out tongue? Yes 10:59:02 Airway obstruction? No ? 10:59:05 Dentures? No ? 10:59:08 Pre procedure: right dorsailis pedis pulse 1+ Palpable, but thready & weak; easily obliterated 10:59:17 Patient pain scale 0/10 ?. 10:59:23 IV patent on arrival in left forearm with 0.9% NaCl at [facility]. 10:59:43 Lab results completed and on chart. 10:59:47 Right groin area was prepped with chlora-prep and draped in sterile fashion 10:59:49 Alarms reviewed by R. N. 10:59:49 Sharps counted by scrub and verified by R.N. 11:02:23 0.9% NaCl 100 ml/hr I.V. was given by Kaela Meehan RN; Per physician; 11:03:01 Physician arrived 11:03:01 --------ALL STOP TIME OUT------ 11:03:02 Final Timeout: patient, procedure, and site verified with staff and physician. All members of the team are in agreement. 11:03:03 Right groin site verified by team. 11:03:06 Physical assessment completed. ASA score P 2 - A patient with mild systemic disease as per Ovi Anthony MD. 11:03:09 Sedation plan: IV Moderate Sedation Versed, Fentanyl 11:03:16 Use device set Femoral PCI 11:03:18 Acist Syringe opened to sterile field. 11:03:18 Acist Hand Control opened to sterile field. 11:03:19 Bag Decanter opened to sterile field. 11:03:19 Cardinal Cath Pack opened to sterile field. 11:03:21 St Manolo 260cm J .035 wire opened to sterile field. 11:03:22 Merit BasixCompak Inflation Kit opened to sterile field. 11:03:22 Acist Manifold opened to sterile field. 11:03:24 Tegaderm 4 x 4 opened to sterile field. 11:03:29 Versed 1 mg I.V. was given by Kaela Meehan RN; for sedation; 11:03:35 Fentanyl 50 mcg I.V. was given by Kaela Meehan RN; for sedation; 11:03:43 Medtronic Launcher 6Fr HS II SH guide catheter opened to sterile field. 11:03:44 Confluence Discovery Technologies Choice PT Extra Support J 300cm .014 gu opened to sterile field. 11:03:45 Terumo 7Fr [place] Sheath opened to sterile field. 11:04:09 PCI Cath status Elective 11:04:36 Zero performed for pressure channel P1 11:04:40 Zero performed for pressure channel P1 11:05:21 Versed 1 mg I.V. was given by Kaela Meehan RN; for sedation; 11:05:26 Fentanyl 50 mcg I.V. was given by Kaela Meehan RN; for sedation; 11:05:28 Procedure started. 11:05:34 Local anesthetic to right femoral artery with Lidocaine 2% by Ovi Anthony MD.INITIAL ACCESS ONLY 11:07:51 Versed 1 mg I.V. was given by Kaela Meehan RN; for sedation; 11:07:53 Fentanyl 50 mcg I.V. was given by Kaela Meehan RN; for sedation; 11:08:06 A 7 Fr Short sheath was inserted into the Right Femoral artery 11:08:41 6 Fr hs 2 sh guide catheter was inserted over the wire 11:09:01 Heparin Bolus 4000 units I.V. was given by Kaela Meehan RN; for anticoagulation; dose verified wt dr anthony 11:09:07 RCA angiography performed. 11:09:44 Versed 1 mg I.V. was given by Kaela Meehan RN; for sedation; 11:09:52 Fentanyl 50 mcg I.V. was given by Kaela Meehan RN; for sedation; 11:10:04 choicept wire advanced. 11:12:16 Inflation Number: 1 A Medtronic Resolute 3.0 X 15 stent was prepped and advanced across the Mid RCA. The stent was deployed at 11 JOELLE for 0:10 (min:sec). 11:13:02 Nitroglycerin IC/IA 300 mcg I.C. was given by Ovi Anthony MD; for vasodilation; 11:14:13 Nitroglycerin IC/IA 300 mcg I.C. was given by Ovi Anthony MD; for vasodilation; 11:15:54 Stent catheter was removed intact over wire. 11:15:56 Wire removed. 11:15:56 Guide catheter removed. 11:16:08 Cordis 7Fr Exoseal opened to sterile field. 11:16:18 Sheath removed intact; hemostasis achieved with Exoseal to the Right Femoral artery. 11:16:40 Procedure ended.(Physican Out) 11:17:19 Fluoroscopy time 02.80 minutes. 11:17:24 Flurop Dose total: 174 11:17:24 Fluoroscopy dose: 174 mGy 11:17:28 Contrast amount:Isovue 370 107ml. 11:17:36 Sharps counted by scrub and verified by R.N. 11:17:39 Insertion/operative site no bleeding no hematoma. 11:17:44 Post-op/insertion site Right Femoral artery dressed using a 4 x 4 and Tegaderm. 11:17:47 Post right femoral artery:stable 11:17:51 Post Procedure Pulses reassessed and unchanged 11:17:55 Post procedure rhythm: unchanged. 11:18:01 Estimated blood loss: 5 ml 11:18:03 Post procedure instruction explained to patient.Patient verbalizes understanding. 11:18:06 Patient needs reinforcement of post procedure teaching. 11:18:19 Procedure type changed to Cath procedure, PCI procedure, Coronary Stent Initial 11:18:20 Procedure and supply charges have been captured, reviewed, submitted and are correct. 11:18:24 Procedure Complication : No complications 11:18:26 Vital chart was stopped 11:18:26 See physician's report for complete and final results. 11:18:32 Report given to Post Procedure Room. 11:18:35 Patient transfered to Post Procedure Room with Stretcher. 11:18:37 Procedure ended. 11:18:37 Full Disclosure recording stopped 11:18:45 ACC-PCI Only Patient was given prescriptions, or instructed by Ovi Anthony MD to start/continue the following medications upon discharge: Plavix 11:18:47 End room use (Document Last) 11:19:31 Admit Source: Other 11:19:36 Arrival Date: 04/17/2016 9:30:00 AM 11:19:42 Insurance Payor : Private health insurance 11:22:22 Patient Height : 187.96 cm 11:22:26 Patient Weight : 72.57 kg 11:23:48 Lab Result : BUN 17 mg/dl 11:23:48 Lab Result : Creatinine 0.9 mg/dl 11:23:48 Lab Result : Hemoglobin 14.7 g/dl 11:23:48 Hemodynamic formulas in Rest were re-calculated based on hemoglobin value from 04/17/2016 12:00:00 AM Intervention Summary Intervention Notes Time ActionType Lesion and Equipment Action# Pressure Duration Attributes Used 11:12:16 Place stent Mid RCA Medtronic 1 11 00:10 Resolute 3.0 X 15 stent Device Usage Item Name Manufacture Quantity Catalog Number Hospital Part Current Minim al Lot# / Charge Number Stock Stock Serial# Code Acist Acist 1 05834 386020 983290 [id number] 20 Syringe Medical Systems Inc Acist Hand Acist 1 17707 936180 375922 177644 5 Control Medical Systems Inc Bag Microtek 1 2002S 529540 66586 285504 5 Decsambaash Medical Inc. Cardinal Cardinal 1 [id number] 115927 04372 171193 5 Implicit Monitoring Solutions [facility] [address] St Manolo 1 212280 850051 029876 134333 30 260cm J .035 wire Merit Merit 1 [id number] 045153 643826 783053 15 BasixCompak Medical Inflation Kit Acist Acist 1 33571 083274 720243 044322 5 Manifold Medical Systems Inc Tegaderm 4 3M 1 1626W 910612 826742 764453 5 x 4 Medtronic Medtronic 1 [id number] 013770 97025 325960 1 Launcher 6Fr HS II SH guide catheter [place] [employer] [place] 1 [id number] 999584 472269 147060 5 Choice PT Scientific Extra Support J 300cm .014 gu Terumo 7Fr Terumo 1 EOR518 327859 777499 151806 5 [place] Sheath Medtronic Medtronic 1 [id number] 770977 652824 2 [id number] Resolute 3.0 X 15 stent Cordis 7Fr Cardinal 1 EX700 020298 217127 674152 5 Exoseal Health Signature Audit [place] Stage Time Signature Unsigned Intra-Procedure 04/17/2016 Rohini Allen 11:25:07 AM RT(R) Signatures Monitor : Rohini Allen RT Signature : Date : Time : [address] [place] [address]
[~2016-04-17 07:37] MED LIST: BAYER CHEWABLE81 MG PO; PLAVIX75 MG PO; PRINIVIL10 MG PO
[2016-04-17 08:15] VITALS: BP 162/91; BMI 20.5
[2016-04-17 08:40] LABS: BASOPHILS 0.3 % (0.0-2.0); EOSINOPHILS 1.8 % (0-7); HEMATOCRIT 42.6 % (42.0-54.0); HEMOGLOBIN 14.7 g/dL (13.5-17.5); IMMATURE GRANULOCYTES 0.2 % (0-5); LYMPHOCYTES 28.2 % (15-50); MCH 32.3 pg (26.0-34.0); MCHC 34.5 g/dL (31.0-37.0); MCV 93.6 fL (80.0-100.0); MONOCYTES 9.9 % (2-11); NEUTROPHILS 59.6 % (40-80); PLATELET COUNT 194 10x3/uL (130-400); RBC 4.55 10x6/uL (4.20-6.10); RDW 12.1 % (11.5-14.5); WBC 6.1 10x3/uL (4.8-10.8)
[2016-04-17 08:44] LABS: CALC OSMOLALITY 280 mosm/kg (275-300); CALCIUM 9.5 mg/dL (8.5-10.1); CARBON DIOXIDE 30.2 mmol/L (21.0-32.0); CHLORIDE - SERUM 104 mmol/L (98-107); CREATININE - SERUM 0.9 mg/dL (0.6-1.3); GLUCOSE 103 mg/dL (74-106); POTASSIUM - SERUM 4.3 mmol/L (3.5-5.1); SODIUM 140 mmol/L (136-145); UREA NITROGEN 17 mg/dL (7-18); eGFR NON AFRICAN AMERICAN > 90 mL/min (90-120)
--- NOTE | 2016-04-17 11:45 | NUR ---
1145 NO C/O OF CHEST PAIN NSR RATE 68 7 FR EXOSEAL R/GROIN CDI NO BLEEDING NO HEMATOMA NOTED PULSES PRESENT AND MARKED
--- NOTE | 2016-04-17 12:19 | NUR ---
1215 NO CHANGE IN ASSESSMENT. R/GROIN CDI NO BLEEDING NO HEMATOMA NOTED
--- NOTE | 2016-04-17 12:45 | NUR ---
1245 7 FR EXOSEAL R/GROIN CDI NO BLEEDING NO HEMATOMA NOTED. VSS WITH NO C/O OF CHEST PAIN WILL MONITOR
--- NOTE | 2016-04-17 13:33 | NUR ---
TOLERATING ORAL FLUIDS WITH NO C/O OF NAUSEA. VSS WILL MONITOR
--- NOTE | 2016-04-17 14:02 | NUR ---
NO CHANGE IN ASSESSMENT WILL MONITOR
--- NOTE | 2016-04-17 14:36 | NUR ---
CHEST PAIN DENIED WITH VSS. 7 FR EXOSEAL R/GROIN CDI NO BLEEDING NO HEMATOMA NOTED TOLERATING ORAL FLUIDS WITH NAUSEA DENIED
--- NOTE | 2016-04-17 15:18 | NUR ---
REPORT CALLED TO HENRRY ON MED 2 WITH PATIENT TRANSPORTED VIA BED TO ROOM 2114 CHEST PAIN IS DENIED. 7 FR EXOSEAL R/GROIN CDI NO BLEEDING NO HEMATOMA NOTED
--- NOTE | 2016-04-17 15:32 | NUR ---
recived from home performance laborer. BED REST UP AT THIS TIME. UP IN ROOM. RT AMINTA VILLATORO C/D ADMIT ASSESSMENT DONE PER RN
--- NOTE | 2016-04-17 15:33 | NUR ---
TRANSFER FROM [facility] BULK DRIVER. TR BAND NOTED TO RIGHT WRIST. OREINTED TO ROOM. CALL LIGHT IN REACH. WILL CONT. PLAN OF CARE.
[2016-04-17 15:40] VITALS: Ht 188 cm; Wt 73.2 kg
[2016-04-17 16:00] VITALS: BP 159/81
--- NOTE | 2016-04-17 17:05 | NUR ---
WITHOUT CHANGES OR DISTRESS NOTED AT THIS TIME. DENIES NEEDS.
[2016-04-17 21:06] VITALS: BP 153/87
--- NOTE | 2016-04-17 21:07 | NUR ---
PT ASSESSMENT COMPLETED, PT LAYING IN BED NO DISTRESS OBSERVED CALL LIGHT IN REACH SRX2 BED LOW AND LOCKED PIV SALINE LOCKED AND FLUSHED WITH 10CC NORMAL SALINE NO INFILTRATION NOTED AND FLUSHED WITH NO PROBLEM, ORANGE SWAB CAP INPLACE. RIGHT GROIN CATH INSERTION SITE ASSESSED NO BLEEDING, HEMOTOMA OBSERVED DRESSING C/D/I CONSENT FOR CATH IN AM SIGNED AND TO CHART RESPERATION EVEN AND UNLABORED ON ROOM AIR WILL MONITOR
[2016-04-18 00:43] VITALS: BP 135/74
[2016-04-18 05:26] VITALS: BP 137/62
--- NOTE | 2016-04-18 07:10 | NUR ---
ASSESSMENT DONE. DENIES NEEDS.
[2016-04-18 08:24] VITALS: BP 131/80
--- NOTE | 2016-04-18 09:54 | NUR ---
RESTS WITH EYES CLOSED. CALL LIGHT IN REACH. WILL CONT. PLAN OF CARE.
--- NOTE | 2016-04-18 10:00 | NUR ---
TO JAWBONE PULLER PER BED
--- NOTE | 2016-04-18 11:00 | NUR ---
RETURN FROM [facility]. LT GROIN WITH FEM STOP NOTED, PULSE PALP.
[2016-04-18 13:17] VITALS: BP 146/76
--- NOTE | 2016-04-18 15:00 | NUR ---
RT GROIN C/D. PULSE PALP
--- NOTE | 2016-04-18 15:43 | NUR ---
DC GIVEN TO PT
--- NOTE | 2016-04-18 15:45 | NUR ---
DC HOME PER PERSONAL CAR
--- NOTE | 2016-04-20 16:40 | OP ---
PATIENT NAME: JR BRIGHT MEDICAL RECORD: [id number] :54 LOCATION:D.CAT ADMISSION DATE: SURGEON: YUNIEL QUINONES MD DATE OF OPERATION: 04/18/2016 PROCEDURES: 1. PTCA stent left circumflex. 2. Selective coronary angiography. 3. Intravascular ultrasound of left circumflex. INDICATION: Angina and coronary artery disease. PROCEDURE IN DETAIL: After informed consent was obtained and after a detailed explanation of the risks, benefits, as well as alternative therapies, the patient elected to proceed with angiogram and angioplasty. The left femoral area was prepped and draped in normal sterile fashion. Left femoral artery was cannulated via modified Seldinger technique with placement of 6-Slovenian sheath. All catheters exchanged through this sheath. FINDINGS: The left circumflex greater than 80% stenosis confirmed by intravascular ultrasound in the mid vessel. This was addressed with a 2.5 x 26 mm Resolute stent. Result was 0% residual stenosis. OVERALL IMPRESSION: Successful percutaneous transluminal coronary angioplasty stent of the left circumflex going from 80% initial stenosis to 0% residual stenosis. TRANSINT:[id number] Voice Confirmation ID: [id number] DOCUMENT ID: [id number] YUNIEL QUINONES MD at 1640 CC: [id number] DICTATION DATE: 04/18/16 1057 CARD BOXER: 04/18/16 1126 [facility] CLI 04/18/16 [id number] [place] [address]
--- NOTE | 2016-04-20 16:40 | HP ---
PATIENT: JR COLLINS MEDICAL RECORD: [id number] ACCOUNT: [id number] LOCATION:JOE : 54 ADMISSION DATE: 04/17/16 HISTORY AND PHYSICAL EXAMINATION DATE OF HISTORY AND PHYSICAL: 04/17/2016 ADMITTING DIAGNOSES: 1. Angina. 2. Coronary artery disease. 3. Recent percutaneous transluminal coronary angioplasty stent, left anterior descending with concomitant disease of the right coronary artery. 4. Hypertension. 5. Hyperlipidemia. HISTORY OF PRESENT ILLNESS: Mr. Collins presented with unstable anginal symptomatology last week, found to have 2-vessel coronary artery disease of the RCA and LAD, underwent successful PTCA stent of the LAD. He is now brought back for PTCA stent of the RCA in a staged fashion. PHYSICAL EXAMINATION: GENERAL APPEARANCE: Well-nourished, well-developed, appears stated age. Level of distress, comfortable. PSYCHIATRIC: Mental status, alert, normal affect. Orientation, oriented to time, place and person. EYES: Lids and conjunctiva, noninjected. No discharge, no pallor. ENT: Lips, teeth, gums, normal dentition. Oropharynx, no cyanosis, no pallor. NECK: Carotid arteries, bilateral normal upstroke, no bruits, no thrills. JUGULAR VEINS: No jugular venous pressure or distention. CERVICAL LYMPH NODES: Nontender, nonenlarged. THYROID: Not enlarged. Nontender. No nodules. LUNGS: Respiratory effort, unlabored. CHEST: Normal curvature. No thoracic deformity. No chest wall tenderness. Percussion, resonant. Auscultation, clear. No wheezes, no rales, no rhonchi. CARDIOVASCULAR: Precordial exam, nondisplaced. No heaves or pericardial thrills. Rate and rhythm, regular. Heart sounds, normal S1, normal S2. No S3, no gallop, no rub. Systolic murmur, not heard. Diastolic murmur, not heard. EXTREMITIES: No cyanosis, no edema. Peripheral pulses, full and equal in all extremities, except as noted. No bruits appreciated. ABDOMEN: Soft, nondistended. Normal aorta. No bruit. Nontender. No masses. Liver, nontender, no hepatomegaly. Spleen, nontender, no splenomegaly. MUSCULOSKELETAL: No joint tenderness. No joint swelling. No erythema. NEUROLOGICAL: Normal gait, normal strength, normal tone. SKIN: Warm and dry. REVIEW OF SYSTEMS: The patient reports easy bruising but reports no swollen glands. The patient reports no fever, no night sweats, no significant weight gain, no significant weight loss. No significant exercise tolerance. The patient reports no dry eyes, no irritation, no vision change. Patient reports no difficulty hearing and no ear pain. Patient reports no frequent nose bleeds or nose and sinus problems. Patient reports on arm pain on exertion. No shortness of breath while lying down. No history of heart murmur. Patient reports no cough, no wheezing or coughing up blood. Patient reports no abdominal pain, no vomiting. Normal appetite. No diarrhea and not vomiting blood. No nausea and no constipation. Patient reports no incontinence. No HISTORY AND PHYSICAL [id number] JR COLLINS difficulty urinating. No hematuria. No increased frequency. Patient reports no muscle aches. No weakness, no arthralgias, no back pain. No swelling of the extremities. Patient reports no abnormal mole, no jaundice, no rashes. Reports no loss of consciousness. No weakness and no numbness. No seizures, dizziness, or headaches. The patient reports no depression, no sleep disturbance, feeling safe in a relationship and no alcohol abuse. Patient reports on fatigue. Reports no runny nose or sinus pressure. No itching, no hives, and no frequent sneezing. OVERALL IMPRESSION: Anginal symptomatology with significant disease of the right coronary artery. We will proceed with percutaneous transluminal coronary angioplasty stent of the right coronary artery. TRANSINT:[id number] Voice Confirmation ID: [id number] DOCUMENT ID: [id number] YUNIEL QUINONES MD at 1640 CC: [id number] DICTATION DATE: 04/17/16 1102 COMMUNITY ASSOCIATE: 04/17/16 1114 [facility] CLI 04/18/[address] [address]
--- NOTE | 2016-04-20 16:40 | OP ---
PATIENT NAME: JR BRIGHT MEDICAL RECORD: [id number] :54 LOCATION:D.CAT ADMISSION DATE: SURGEON: YUNIEL QUINONES MD DATE OF OPERATION: 04/17/2016 PROCEDURES: 1. PTCA stent, RCA. 2. Selective coronary angiography. INDICATION: Angina and coronary artery disease. PROCEDURE IN DETAIL: After informed consent was obtained and after a detailed explanation of the risks, benefits as well as alternative therapies, the patient elected to proceed with angiogram and angioplasty. The right femoral area was prepped and draped in normal sterile fashion. The right femoral artery was cannulated via modified Seldinger technique with placement of 7-[place]awk sheath. All catheters exchanged through this sheath. FINDINGS: The right coronary artery has a 70% to 80% stenosis in the mid vessel. This was addressed with a 3.0 x 15 mm Resolute stent. Result was 0% residual stenosis. OVERALL IMPRESSION: Successful percutaneous transluminal coronary angioplasty stent of the right coronary artery going from 70% to 80% initial stenosis to 0% residual. TRANSINT:[id number] Voice Confirmation ID: [id number] DOCUMENT ID: [id number] YUNIEL QUINONES MD at 1640 CC: [id number] DICTATION DATE: 04/17/16 1122 TYPE BAR AND SEGMENT ASSEMBLER: 04/17/16 1154 [facility] CLI 04/18/[address] [address]
--- NOTE | 2016-04-20 16:40 | DS ---
PATIENT:JR BRIGHT :54 MEDICAL RECORD: [id number] DISCHARGE SUMMARY ADMISSION DATE: 04/17/16 DISCHARGE DATE: 04/18/16 DISCHARGE DIAGNOSES: 1. Angina. 2. Coronary artery disease. 3. Percutaneous transluminal coronary angioplasty stent right coronary artery and left circumflex this admission. HOSPITAL COURSE: This is a gentleman who presents with anginal symptomatology, found to have disease of the RCA and circumflex. He underwent successful PTCA stent of both territories. He had an uneventful postop course. He was discharged home with no change in medications as he is already on aspirin and Plavix and a statin and follow up with [facility] in 1 month. TRANSINT:[id number] Voice Confirmation ID: [id number] DOCUMENT ID: [id number] YUNIEL QUINONES MD at 1640 CC: [id number] DICTATION DATE: 04/18/16 1057 INSURANCE CLAIMS SPECIALIST: 04/18/16 1129 [facility] CLI 04/18/16 [id number] [place] [address]
== END 2016-04-18 15:45 | disposition home or self-care (01) ==
LOC: D.CATH 07:37 → D.M2 15:20 → D.CATH 04-18 15:45
PROVIDERS: Internal Medicine Interventional Cardiology
DX: I25.119 Atherosclerotic heart disease of native coronary artery with unspecified angina pectoris (principal); Z95.5 Presence of coronary angioplasty implant and graft; I10 Essential (primary) hypertension; E78.5 Hyperlipidemia, unspecified